=== PATIENT | male | born 2000 | race Caucasian/White ===

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

== ENCOUNTER → 2021-10-08 | Outpatient (CLI) | payer OTHER | LOC: RT 13:55 | DX: R00.2 Palpitations (principal) | CPT/HCPCS: 71046; 93005 ==

== ENCOUNTER → 2021-11-19 | Outpatient (CLI) | payer OTHER | LOC: HEART 5 11-06 15:30 | DX: R00.2 Palpitations (principal) ==